=== PATIENT | female | born 1945 | race Caucasian/White ===

== ENCOUNTER 2019-06-16 15:34 | Emergency (ER) | payer MEDICARE, SELFPAY ==
[2019-06-16 16:05] VITALS: BP 149/102; PULSE 98; RESP 18; TEMP 37.4; O2SAT 100
[2019-06-16 16:15] VITALS: BP 133/90; PULSE 77; RESP 18; TEMP 36.9; O2SAT 98
--- NOTE | 2019-06-16 16:37 | ED.EAR ---
HPI - Ear Problem General Chief complaint: Ear Stated complaint: Clogged ear Time Seen by Provider: 06/16/19 16:35 Source: patient Mode of arrival: ambulatory Limitations: no limitations History of Present Illness HPI Narrative: Pt is a 73 y/o female who presents to the ED with c/o rt ear being clogged. Pt got off her flight this morning from [place] and her rt ear has not popped. She has been fighting a cold for a week with nasal congestion and rhinorrhea. She denies fever or N/V. Pt also recently had lt eye cataract surgery. Complaint: other (ear clogged) Location: right ear Relieving factors: nothing Context: Reports recent plane flight Associated symptoms ear: other (rhinorrhea, nasal congestion) Related Data Home Medications Medication Instructions Recorded Confirmed Imitrex 06/16/19 Zomig 06/16/19 prednisone 06/16/19 ropinirole 06/16/19 Allergies Allergy/AdvReac Type Severity Reaction Status Date / Time No Known Allergies Allergy Verified 06/16/19 16:31 Review of Systems Review of Systems: All systems reviewed & are unremarkable except as noted in HPI and below Constitutional: Constitutional: Denies fever(s) ENT: Reports nasal congestion and Reports other (rt ear clogged, rhinorrhea) Gastrointestinal: Gastrointestinal: Denies nausea and Denies vomiting PMF Past Medical History Medical History (Updated 06/16/19 @ 17:19 by Dev Goldman DO) Seasonal allergies Surgical History Surgical History (Updated 06/16/19 @ 16:42 by Theresa Julio) H/O left cataract extraction Social History Social History (Updated 06/16/19 @ 16:42 by Theresa Julio) Smoking status: Never smoker Gender identity (if verbalized by the patient): Female Exam Narrative: Exam Narrative: APPEARANCE: No acute distress, nontoxic, resting in bed EYES: EOMI mild conjunctival erythema of the left eye, HEENT: Normocephalic, atraumatic, left TM normal in appearance, the right TM has effusion present, the bilateral external canals are clear of cerumen, bilateral turbinates boggy, no erythema exudate posterior pharynx RESPIRATORY: No respiratory distress Clear to auscultation bilaterally with no rhonchi wheezing or rales. CARDIOVASCULAR: Regular rate and rhythm without murmurs rubs or gallops. ABDOMINAL: Soft, nontender, nondistended, no rebound or guarding MUSCULOSKELETAl: Moves all extremities. No clubbing, cyanosis or edema. NEURO: Awake and alert. Following commands, speech normal, no focal deficits SKIN:: Warm, dry. No rashes lesions or abrasions PSYCHIATRIC: Normal affect/mood, Course Course Emergency Course: Discussed with patient results of workup and diagnosis. Discussed need for follow-up with primary care, proper use of medication, and reasons to return to the emergency department. Patient understands and agrees to current treatment plan Vital Signs Vital signs: Vital Signs Temperature 99.3 F 06/16/19 16:05 Pulse Rate 98 06/16/19 16:05 Respiratory Rate 18 06/16/19 16:05 Blood Pressure 149/102 H 06/16/19 16:05 Pulse Oximetry 100 06/16/19 16:05 Temperature 98.4 F 06/16/19 16:15 Pulse Rate 77 06/16/19 16:15 Respiratory Rate 18 06/16/19 16:15 Blood Pressure 133/90 06/16/19 16:15 Pulse Oximetry 98 06/16/19 16:15 Medical Decision Making Vital Signs Vital Signs: Vital Signs Temperature 99.3 F 06/16/19 16:05 Pulse Rate 98 06/16/19 16:05 Respiratory Rate 18 06/16/19 16:05 Blood Pressure 149/102 H 06/16/19 16:05 Pulse Oximetry 100 06/16/19 16:05 Temperature 98.4 F 06/16/19 16:15 Pulse Rate 77 06/16/19 16:15 Respiratory Rate 18 06/16/19 16:15 Blood Pressure 133/90 06/16/19 16:15 Pulse Oximetry 98 06/16/19 16:15 Lab Data Labs: Influenza A Screen Negative Reference Range: Negative Influenza B Screen Negative Reference Range: Negative Discharge Plan Discharge Clinical I
== END 2019-06-16 17:48 | disposition home or self-care (01) ==
PROVIDERS: Emergency Provider Emergency Medicine
DX: H93.8X1 Other specified disorders of right ear (principal); Z98.42 Cataract extraction status, left eye
CPT/HCPCS: 87804; 99283

== ENCOUNTER 2021-09-19 05:49 | Emergency (ER) | payer MEDICARE, SELFPAY ==
--- NOTE | ~2021-09-19 | CT_ITS ---
EXAMINATION: CTA brain carotid DATE: 09/19/2021 07:01 INDICATION: Headache TECHNIQUE: Computed tomographic angiography (CTA) of the head was performed without and with 100 mL O mnipaque-350 intravenous contrast. CTA of the neck was performed with intravenous contrast. The dose- length product was 1745.78 mGy-cm. Maximum intensity projection and volume rendered 3D-reconstruction s were created by the technologist on a separate workstation. Automated exposure control and iterativ e reconstruction technique were employed. COMPARISON: None. FINDINGS: HEAD CTA: There is no acute intraparenchymal hemorrhage. No evidence of mass lesion. No evidence of a cute infarction. There is mild periventricular and subcortical hypodensity probably related to small vessel ischemic disease. There is mild prominence of the sulci and ventricles related to cerebral atr ophy. Intracranial calcified cerebral atherosclerosis is noted. There are no extra-axial collections. There is no mass effect or midline shift. Changes in the globes are likely from ocular lens surgery. The visualized sinuses and mastoid air cells are well aerated. There is no significant stenosis of the basilar artery or posterior cerebral arteries. There is no si gnificant stenosis of the intracranial internal carotid arteries or the anterior or middle cerebral a rteries. The anterior communicating artery and right posterior communicating artery are normal. And t he left posterior communicating arteries hypoplastic There is no aneurysm. NECK CTA: The thyroid gland is unremarkable. The submandibular and parotid glands are symmetric. Ther e is no lymphadenopathy. There are no masses identified. The airway is unremarkable. There are no oss eous abnormalities. The superior mediastinum is unremarkable. There is 0% stenosis of the proximal right internal carotid artery relative to normal distal artery l umen diameter (NASCET criteria). There is 0% stenosis of the proximal left internal carotid artery re lative to normal distal artery lumen diameter. IMPRESSION: 1. No acute intracranial abnormality. Normal head CTA. 2. 0% stenosis of the proximal right internal carotid artery relative to normal distal artery lumen d iameter (NASCET criteria). 3. 0% stenosis of the proximal left internal carotid artery relative to normal distal artery lumen di ameter. Reviewed, dictated and finalized at location A. IMPRESSION: 1. No acute intracranial abnormality. Normal head CTA. 2. 0% stenosis of the proximal right internal carotid artery relative to normal distal artery lumen diameter (NASCET criteria). 3. 0% stenosis of the proximal left internal carotid artery relative to normal distal artery lumen diameter.
[2021-09-19 05:49] VITALS: BP 147/87; PULSE 67; RESP 18; TEMP 36.6; O2SAT 97
--- NOTE | 2021-09-19 06:10 | ED.HA ---
HPI - Headache General Chief Complaint: Headache <Agueda Live MD - Last Filed: 09/19/21 07:31> Stated Complaint: headache <Agueda Live MD - Last Filed: 09/19/21 07:31> Time Seen by Provider: 09/19/21 06:04 <Agueda Live MD - Last Filed: 09/19/21 07:31> History of Present Illness HPI Narrative: 76-year-old female with history of migraines on triptans presents here with 4 days of headache to occiput that is different from her usual migraines, states that she had an aggressive massage to the back of her neck/base of skull several days ago and now has severe pain keeping her from sleeping, no focal neurologic deficits, she took some of her triptan medication at home and had some improvement but not all the way. No nausea or vomiting. No fevers or chills. <Agueda Live MD - Last Filed: 09/19/21 07:31> Related Data Home Medications: Home Medications Medication Instructions Recorded Confirmed Imitrex 06/16/19 Zomig 06/16/19 prednisone 06/16/19 ropinirole 20 <Agueda Live MD - Last Filed: 09/19/21 07:31> Allergies/Adverse Reactions: Allergies Allergy/AdvReac Type Severity Reaction Status Date / Time No Known Allergies Allergy Verified 09/19/21 05:51 <Agueda Live MD - Last Filed: 09/19/21 07:31> Review of Systems Review of Systems: All systems reviewed & are unremarkable except as noted in HPI and below <Agueda Live MD - Last Filed: 09/19/21 07:31> PMFSH Past Medical History Medical History: Medical History Migraine Seasonal allergies <Agueda Live MD - Last Filed: 09/19/21 07:31> Surgical History Surgical History: Surgical History H/O left cataract extraction H/O sinus surgery <Agueda Live MD - Last Filed: 09/19/21 07:31> Social History Social History: Social History Smoking status: Never smoker Gender identity (if verbalized by the patient): Female <Agueda Live MD - Last Filed: 09/19/21 07:31> Exam Narrative: EXAMINATION OF ORGAN SYSTEMS/BODY AREAS: Constitutional: Vital signs per nursing GENERAL: No acute distress, non-toxic appearing. HEAD: Normal with no signs of head trauma. EYES: EOMI, conjunctiva normal ENT: Hearing grossly intact LUNGS: Nonlabored breathing. HEART: Regular rate and rhythm ABD: Nondistended EXT: Normal range of motion SKIN: No rashes or lesions. NEURO: Alert and oriented x 3. No gross focal sensory or strength deficits. No facial droop PSYCH: Normal affect <Agueda Live MD - Last Filed: 09/19/21 07:31> Course Course Emergency Course: 76-year-old female presents with headache after neck manipulation, VSS and exam neuro intact. Ddx incl migraine, tension DIAZ, need to r/o dissection given h/o manipulation. Will obtain imaging and give meds for pain. <Agueda Live MD - Last Filed: 09/19/21 07:31> Informed of results. DIAZ improved. D/c home. <Gary Todd MD - Last Filed: 09/19/21 07:28> Vital Signs Vital signs: Vital Signs Temperature 97.8 F 09/19/21 05:49 Pulse Rate 67 09/19/21 05:49 Respiratory Rate 18 09/19/21 05:49 Blood Pressure 147/87 H 09/19/21 05:49 Pulse Oximetry 97 09/19/21 05:49 Temperature 97.8 F 09/19/21 05:49 Pulse Rate 67 09/19/21 05:49 Respiratory Rate 18 09/19/21 05:49 Blood Pressure 147/87 H 09/19/21 05:49 Pulse Oximetry 97 09/19/21 05:49 <Agueda Live MD - Last Filed: 09/19/21 07:31> Vital Signs Temperature 97.8 F 09/19/21 05:49 Pulse Rate 67 09/19/21 05:49 Respiratory Rate 18 09/19/21 05:49 Blood Pressure 147/87 H 09/19/21 05:49 Pulse Oximetry 97 09/19/21 05:49 Temperature 97.8 F 09/19/21 05:49 Pulse Rate 67 09/19/21 05:49 Respiratory Rate 18 09/19/21 05:49 Blood Pressure 147/87 H 09/19/21 05:49 Pulse Oximetry 97 09/07
[2021-09-19] MEDS: diphenhydrAMINE HCl INJ 50 MG/ML VIAL 25 MG IV PUSH (06:38)
[2021-09-19] MEDS: SODIUM CHLORIDE 0.9% IV 100 ML 500 ML (06:38)
[2021-09-19] MEDS: METOCLOPRAMIDE HCL INJ 10 MG/2 ML VIAL IV PUSH (06:38)
[2021-09-19 06:43] LABS: Estimated CRCL calculation 56 ml/min; Estimated Glomerular Filt Rate > 60
[2021-09-19 07:44] VITALS: BP 150/69; PULSE 64; RESP 18; O2SAT 99
== END 2021-09-19 07:45 | disposition home or self-care (01) ==
PROVIDERS: Emergency Provider Emergency Medicine
DX: G43.909 Migraine, unspecified, not intractable, without status migrainosus (principal); G44.209 Tension-type headache, unspecified, not intractable; Z98.42 Cataract extraction status, left eye
CPT/HCPCS: 70496; 70498; 96361; 96374; 96375; 99284; J1200; J2765; Q9967